=== PATIENT | female | born 1975 | race Caucasian/White ===

== ENCOUNTER 2021-12-29 21:21 | Emergency (ER) | payer MEDICAID ==
[2021-12-29 21:45] VITALS: PULSE 94
[2021-12-29 22:35] LABS: ANION GAP 13.6 meq/L (7-15); CHLORIDE,CL 101 mmol/L (98-107); SODIUM,NA 139 mmol/L (136-145)
[2021-12-29] MEDS ORDERED: Potassium Chloride 20 MEQ Tab.ER PO ONE (22:36)
[2021-12-29 22:59] VITALS: BP 138/96
== END 2021-12-29 23:05 | disposition home or self-care (01) ==
LOC: LL.ED 21:21
DX: R30.0 Dysuria (principal); E87.6 Hypokalemia; E03.9 Hypothyroidism, unspecified; Z88.2 Allergy status to sulfonamides
CPT/HCPCS: 36415; 80053; 81001; 83735; 84443; 85025; 99283; A9270-GY

== ENCOUNTER 2025-03-13 09:34 | Day surgery (SDC) | payer MEDICAID ==
[~2025-03-13 09:34] MED LIST: Midazolam 1 MG/ML 2 ML SDV ONE; Propofol 200 MG/20 ML SDV ONE; Sodium Chloride 0.9% 10 ML Syringe FLUSH PRN
[2025-03-13] MEDS: Lactated Ringers 1,000 ML IV SCH (10:22)
[2025-03-13 12:05] VITALS: BP 120/70; PULSE 58
== END 2025-03-13 12:00 | disposition home or self-care (01) ==
LOC: LL.SDS 09:34
PROVIDERS: ATTEND Surgery
DX: K59.00 Constipation, unspecified (principal); Q43.8 Other specified congenital malformations of intestine; K58.9 Irritable bowel syndrome, unspecified; E03.9 Hypothyroidism, unspecified; E78.2 Mixed hyperlipidemia; F41.1 Generalized anxiety disorder
CPT/HCPCS: 45378; J2250; J2704; J7120